=== PATIENT | male | born 1960 | race Caucasian/White ===

== ENCOUNTER 2016-03-06 14:19 | Emergency (ER) | payer OTHER ==
--- NOTE | 2016-03-06 14:27 | PD ---
HPI Chief Complaint: Psychiatric symptoms Time Seen by Provider: 14:27 Travel History International Travel<30 days: No Contact w/Intl Traveler<30days: No History of Present Illness HPI 55-year-old male with PMH of bipolar disorder presents to the ED under [place] act for evaluation of suicidal ideation. According to BA paperwork the patient has been feeing suicidal [place]. On presentation the patient endorses suicidal ideation. He states that he has been feeling "not right" for a few weeks. He denies visual or auditory hallucinations. He endorses drinking heavily over the last few months. Endorses drinking one beer today. He denies illicit drug use. Complains of chronic knee and back pain, no worse today. No other somatic complaints. NKDA. PFSH Social History Alcohol Use: Yes Tobacco Use: Yes Substance Use: No Allergies-Medications (Allergen,Severity, Reaction): Coded Allergies: No Known Allergies (Unverified , 03/06/16) Reported Meds & Prescriptions Reported Meds & Active Scripts Active No Active Prescriptions or Reported Medications Review of Systems Except as stated in HPI: all other systems reviewed are Neg Physical Exam Narrative GENERAL: Well-nourished, well-developed, tremulous, thin white male in no acute distress. PSYCHIATRIC: No delusional thought processes. No hallucinations. SKIN: Warm and dry. HEAD: Normocephalic. EYES: No scleral icterus. No injection or drainage. NECK: Supple, trachea midline. No JVD or lymphadenopathy. CARDIOVASCULAR: Regular rate and rhythm without murmurs, gallops, or rubs. RESPIRATORY: Breath sounds clear and equal bilaterally. No accessory muscle use. GASTROINTESTINAL: Abdomen soft, non-tender, nondistended. Active bowel sounds. MUSCULOSKELETAL: No cyanosis, or edema. The patient is ambulatory and moves extremities spontaneously. BACK: Nontender without obvious deformity. No CVA tenderness. Data Data Last Documented VS Vital Signs Date Time Temp Pulse Resp B/P Pulse Ox O2 Delivery O2 Flow Rate FiO2 03/06/16 14:36 98.1 84 16 158/94 97 Orders Complete Blood Count With Diff (03/06/16 14:26) Comprehensive Metabolic Panel (03/06/16 14:26) Drug Screen, Random Urine (03/06/16 14:26) Alcohol (Ethanol) (03/06/16 14:26) Psych Screen (03/06/16 14:26) Alcohol Withdrawal Asmt-Ciwa ONCE (03/06/16 15:04) Flumazenil Inj (Romazicon Inj) (03/06/16 15:15) Lorazepam (Ativan) (03/06/16 15:15) Lorazepam Inj (Ativan Inj) (03/06/16 15:15) Lorazepam (Ativan) (03/06/16 15:15) Lorazepam Inj (Ativan Inj) (03/06/16 15:15) Lorazepam Inj (Ativan Inj) (03/06/16 15:15) Lorazepam Inj (Ativan Inj) (03/06/16 15:15) Lorazepam (Ativan) (03/06/16 15:15) Diet Regular Basic (03/06/16 Dinner) Labs Laboratory Tests Test 03/06/16 15:15 White Blood Count 11.2 TH/MM3 Red Blood Count 5.02 MIL/MM3 Hemoglobin 15.4 GM/DL Hematocrit 43.8 % Mean Corpuscular Volume 87.2 FL Mean Corpuscular Hemoglobin 30.6 PG Mean Corpuscular Hemoglobin 35.1 % Concent Red Cell Distribution Width 14.2 % Platelet Count 220 TH/MM3 Mean Platelet Volume 8.2 FL Neutrophils (%) (Auto) 76.4 % Lymphocytes (%) (Auto) 11.9 % Monocytes (%) (Auto) 4.7 % Eosinophils (%) (Auto) 6.5 % Basophils (%) (Auto) 0.5 % Neutrophils # (Auto) 8.5 TH/MM3 Lymphocytes # (Auto) 1.3 TH/MM3 Monocytes # (Auto) 0.5 TH/MM3 Eosinophils # (Auto) 0.7 TH/MM3 Basophils # (Auto) 0.1 TH/MM3 CBC Comment DIFF FINAL Differential Comment Sodium Level 140 MEQ/L Potassium Level 3.8 MEQ/L Chloride Level 105 MEQ/L Carbon Dioxide Level 25.9 MEQ/L Anion Gap 9 MEQ/L Blood Urea Nitrogen 9 MG/DL Creatinine 0.94 MG/DL Estimat Glomerular Filtration 83 ML/MIN Rate Random Glucose 90 MG/DL Calcium Level 8.8 MG/DL Total Bilirubin 0.5 MG/DL Aspartate Amino Transf 20 U/L (AST/SGOT) Alanine Aminotransferase 31 U/L (ALT/SGPT) Alkaline Phosphatase 69 U/L Total Protein 7.2 GM/DL Albumin 3.9 GM/DL Urine Opiates Screen NEG Urine Barbiturates Screen NEG Urine Amphetamines Screen NEG Urine Benzodiazepines Screen NEG Urine Cocaine Screen POS Urine Cannabinoids Screen POS Ethyl Alcohol Level 9 MG/DL MDM Medical Decision Making Medical Screen Exam Complete: Yes Emergency Medical Condition: Yes Differential Diagnosis Adjustment disorder versus anxiety versus bipolar versus depression versus dementia versus electrolyte disorder versus malingering versus mood disorder versus ODD versus psychosis versus PTSD versus schizophrenia versus schizoaffective disorder versus substance-induced mood disorder versus other Narrative Course 55 YO male presents to the ED under BA for psychiatric evaluation. Patient endorses SI, stating that he's been thinking about drowning himself. He endorses psychiatric history of bipolar disorder. He states that at one point he lived in the [facility] for 2 years because he didn't want to be around anyone. Endorses drinking heavily over the past few months. Endorses 1 beer today. Denies illicit substances. Complains of chronic knee and back pain, no worse today. No physical complaints. Vitals and physical exam are reassuring. The patient is tremulous, was administered 2 mg Ativan by mouth. CIWA protocol was ordered. No concerning abnormalities of the CBC or CMP. Tox screen positive for cocaine and cannabinoids. Alcohol: 7 The patient is medically cleared for psychiatric evaluation. Please see psych notes for disposition. Diagnosis Primary Impression: Medical clearance for psychiatric admission Scripts No Active Prescriptions or Reported Meds Jes Brizuela Mar 06, 2016 14:27
[2016-03-06 14:36] VITALS: BP 158/94; PULSE 84; RESP 16; TEMP 98.1; O2SAT 97
[2016-03-06] MEDS ORDERED: LORazepam 2 MG TAB PO PRN (15:15)
[2016-03-06] MEDS ORDERED: LORazepam 2 MG/ML VIAL IV PUSH PRN ×4 (15:15)
[2016-03-06] MEDS ORDERED: LORazepam 1 MG TAB PO PRN (15:15)
[2016-03-06] MEDS ORDERED: LORazepam 2 MG TAB PO ONE (15:15)
[2016-03-06] MEDS ORDERED: FLUMAZENIL 1 MG/10 ML VIAL IV PUSH PRN (15:15)
[2016-03-06 16:14] LABS: AUTOMATED NEUTROPHIL # 8.5 TH/MM3 (1.8-7.7); BASOPHIL # 0.1 TH/MM3 (0-0.2); BASOPHIL % 0.5 % (0.0-2.0); EOSINOPHIL # 0.7 TH/MM3 (0-0.4); EOSINOPHIL % 6.5 % (0.0-4.0); HEMATOCRIT 43.8 % (39.0-51.0); HEMO FLAGS DIFF FINAL; LYMPH % 11.9 % (9.0-44.0); LYMPHOCYTE # 1.3 TH/MM3 (1.0-4.8); MEAN CELL VOLUME 87.2 FL (80.0-100.0); MEAN CORPUSCULAR HEMOGLOBIN 30.6 PG (27.0-34.0); MEAN CORPUSCULAR HGB CONC 35.1 % (32.0-36.0); MONO % 4.7 % (0.0-8.0); NEUT % 76.4 % (16.0-70.0); PLATELET COUNT 220 TH/MM3 (150-450); RED BLOOD COUNT 5.02 MIL/MM3 (4.50-5.90); RED CELL DISTRIBUTION WIDTH 14.2 % (11.6-17.2); WHITE BLOOD COUNT 11.2 TH/MM3 (4.0-11.0)
[2016-03-06 16:21] LABS: AMPHETAMINE, URINE NEG (NEG); BARBITURATES, URINE NEG (NEG); COCAINE, URINE POS (NEG)
[2016-03-06 16:36] LABS: ALT (GPT) 31 U/L (12-78); ANION GAP 9 MEQ/L (5-15); AST (GOT) 20 U/L (15-37); BICARBONATE 25.9 MEQ/L (21.0-32.0); BLOOD UREA NITROGEN 9 MG/DL (7-18); CHLORIDE 105 MEQ/L (98-107); GLOMERULAR FILTRATION RATE 83 ML/MIN (>89); POTASSIUM 3.8 MEQ/L (3.5-5.1); SODIUM (NA) 140 MEQ/L (136-145)
[2016-03-06 16:38] LABS: ALKALINE PHOSPHATASE 69 U/L (45-117); TOTAL BILIRUBIN ADULT 0.5 MG/DL (0.2-1.0)
[2016-03-06 18:08] VITALS: BP 183/98; PULSE 80; RESP 20; TEMP 97.9; O2SAT 96
[2016-03-06 22:19] VITALS: BP 162/81; PULSE 57; RESP 18; O2SAT 97
[2016-03-07 02:54] VITALS: BP 137/95; PULSE 84; RESP 18; TEMP 97.8; O2SAT 97
== END 2016-03-07 03:32 ==
LOC: NEDAMB 14:19 → NEPJ 03-07 03:32
DX: F31.9 Bipolar disorder, unspecified (principal)
CPT/HCPCS: 80053; 80307; 80320; 85025; 99285